=== PATIENT | male | born 1995 | race Caucasian/White ===

== ENCOUNTER 2019-01-27 14:16 | Emergency (ER) | payer SELFPAY ==
[~2019-01-27] VITALS: Ht 172.7 cm; Wt 77.1 kg
[2019-01-27 14:26] VITALS: BP 144/70
--- NOTE | 2019-01-27 14:29 | NUR ---
pt ambulated to e for triage
--- NOTE | 2019-01-27 14:40 | NUR ---
PA at chairside
--- NOTE | 2019-01-27 14:42 | NUR ---
Pt bib mother c/o dental pain worsening over 1 month. Was told by his dentist he needs wisdom teeth pulled but has no insurance. 07/03 aching pain. +nausea. Denies taking medication at home.
[2019-01-27] MEDS ORDERED: IBUPROFEN 600 MG TAB PO ONE (14:45)
[2019-01-27] MEDS ORDERED: HYDROcodone/APAP 5/325 MG 1 TAB TAB PO ONE (14:45)
[2019-01-27 14:56] VITALS: BP 145/75
--- NOTE | 2019-01-27 14:56 | NUR ---
Patient discharged with v/s stable. Written and verbal after care instructions given and explained. Patient alert, oriented and verbalized understanding of instructions. Ambulatory with steady gait. All questions addressed prior to discharge. ID band removed. Patient advised to follow up with PMD. Rx of motrin, extra strength, amoxicillin given. Patient educated on indication of medication including possible reaction and side effects. Opportunity to ask questions provided and answered.
== END 2019-01-27 14:56 | disposition home or self-care (01) ==
LOC: MED 14:16
DX: K05.30 Chronic periodontitis, unspecified (principal)
CPT/HCPCS: 99283

== ENCOUNTER 2020-05-22 14:27 | Emergency (ER) | payer SELFPAY ==
[~2020-05-22] VITALS: Ht 175.3 cm; Wt 79.4 kg
[2020-05-22 14:37] VITALS: BP 129/72
--- NOTE | 2020-05-22 14:43 | NUR ---
Patient ambulated to bed 5.
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
[2020-05-22 15:10] VITALS: BP 129/72
--- NOTE | 2020-05-22 15:10 | NUR ---
Patient discharged with v/s stable. Written and verbal after care instructions given and explained. Patient alert, oriented and verbalized understanding of instructions. Ambulatory with steady gait. All questions addressed prior to discharge. ID band removed. Patient advised to follow up with PMD. Rx of NAPROSYN,VISINE given. Patient educated on indication of medication including possible reaction and side effects. Opportunity to ask questions provided and answered.
== END 2020-05-22 15:10 | disposition home or self-care (01) ==
LOC: MED 14:27
DX: S00.83XA Contusion of other part of head, initial encounter (principal); H57.89 Other specified disorders of eye and adnexa; Y04.8XXA Assault by other bodily force, initial encounter; Y93.89 Activity, other specified; Y92.89 Other specified places as the place of occurrence of the external cause; Y99.8 Other external cause status
CPT/HCPCS: 99282; 99283